=== PATIENT | female | born 1970 | race Caucasian/White ===

== ENCOUNTER → 2016-07-17 | Outpatient (REF) | payer MEDICAID, OTHER ==
[2016-07-17 19:50] LABS: COMPLEMENT C4 17.2 MG/DL (10-40)
[2016-07-17 20:45] LABS: BASO % 0.8 % (0.0-1.0); EOS # 0.1 K/mm3 (0.0-0.50); EOS % 2.3 % (0.0-3.0); LARGE UNSTAINED CELL # 0.1 K/mm3 (0.0-0.4); LARGE UNSTAINED CELL % 2.1 % (0.0-4.0); LYMPH # 1.2 K/mm3 (1.5-4.5); LYMPH % 25.6 % (24.0-44.0); MEAN CORPUSCULAR HEMOGLOBIN 30.6 pg (27.0-33.0); MEAN CORPUSCULAR HGB CONC 33.1 g/dl (32.0-36.5); MEAN CORPUSCULAR VOLUME 92.3 fl (80.0-96.0); MONO # 0.4 K/mm3 (0.0-0.8); MONO % 8.5 % (0.0-5.0); NEUTROPHILS # 2.8 K/mm3 (1.8-7.7); NEUTROPHILS % 60.7 % (36.0-66.0); PLATELET COUNT, AUTOMATED 329 k/mm3 (150-450); RED CELL DISTRIBUTION WIDTH 12.9 % (11.5-14.5); WHITE BLOOD COUNT 4.5 K/mm3 (4.0-10.0)
[2016-07-17 21:24] LABS: MICROSCOPIC INDICATED? MAN YES (NO)
[2016-07-17 21:25] LABS: BACTERIA, URINE SMALL AMOUNT; SQUAMOUS EPITHELIAL CELL URINE MOD AMOUNT /hpf (SMALL AMT)
[2016-07-17 21:26] LABS: HYALINE CAST, URINE NONE SEEN /lpf (0-1); MICROSCOPIC EXAM PERFORMED
== END ==
LOC: M SFHCADAM 19:06
PROVIDERS: ATTEND Family Medicine
DX: M25.542 Pain in joints of left hand (principal)

== ENCOUNTER → 2017-05-29 | Outpatient (CLI) | payer MEDICAID ==
--- NOTE | 2017-05-29 15:48 | REPMRS ---
Patient History The patient states she had a clinical breast exam in 05/2017. Family history of breast cancer in maternal aunt at age 50 or over. Taking hormonal contraceptives for 24 years. Digital Woman Screen Mammo: May 29, 2017 - Exam #: [id number] Bilateral CC and MLO view(s) were taken. Technologist: Ratna Carlos, Technologist Prior study comparison: January 18, 2015, digital woman screen mammo performed at [facility] to [facility]. January 06, 2014, digital woman screen mammo performed at [facility] to [facility]. FINDINGS: There are scattered fibroglandular densities. There has been no change in the appearance of the mammogram from the prior studies. There is a mild amount of residual fibroglandular tissue which is fairly symmetric. There is no interval development of dominant mass, architectural distortion, or clustered microcalcification suggestive of malignancy. ASSESSMENT: BI-RADS/ACR category 1 mammogram. Negative. Recommendation Routine screening mammogram in 1 year (for women over age 40). This mammogram was interpreted with the aid of an FDA-approved computer-aided dectection system. Electronically Signed By: Sam Christianson MD 05/29/17 [id number]
== END ==
LOC: M WHC 13:34
PROVIDERS: ATTEND Nurse Practitioner Family
DX: Z12.31 Encounter for screening mammogram for malignant neoplasm of breast (principal); Z92.0 Personal history of contraception

== ENCOUNTER → 2017-06-16 | Outpatient (CLI) | payer OTHER ==
--- NOTE | 2017-06-16 10:45 | REP ---
Chest two views HISTORY: Bronchitis Comparison: None Minimal peribronchial cuffing is present. The heart is normal in size. The pulmonary vasculature is normal in appearance. The bony structure is intact. IMPRESSION: Findings consistent with bronchitis. Signed by Carlo Alexander MD 06/16/2017 10:37 A
[2017-06-16 17:13] LABS: BASO # 0.1 10^3/uL (0.0-0.2); BASO % 0.8 % (0.0-1.0); EOS # 0.2 10^3/uL (0.0-0.50); EOS % 3.5 % (0.0-3.0); IMMATURE GRANULOCYTE % 0.3 % (0-0); LYMPH # 1.4 10^3/uL (1.5-4.5); LYMPH % 21.9 % (24.0-44.0); MEAN CORPUSCULAR HEMOGLOBIN 28.1 pg (27.0-33.0); MEAN CORPUSCULAR HGB CONC 31.5 g/dl (32.0-36.5); MEAN CORPUSCULAR VOLUME 89.1 fl (80.0-96.0); MONO # 0.9 10^3/uL (0.0-0.8); MONO % 13.6 % (0.0-5.0); NEUTROPHILS # 3.8 10^3/uL (1.8-7.7); NEUTROPHILS % 59.9 % (36.0-66.0); PLATELET COUNT, AUTOMATED 348 10^3/uL (150-450); RED CELL DISTRIBUTION WIDTH 14.2 % (11.5-14.5); WHITE BLOOD COUNT 6.3 10^3/uL (4.0-10.0)
== END ==
LOC: M ADAMS 10:09
PROVIDERS: ATTEND Physician Assistant Medical
DX: J20.9 Acute bronchitis, unspecified (principal)

== ENCOUNTER → 2017-07-03 | Outpatient (CLI) | payer OTHER ==
--- NOTE | 2017-07-04 14:35 | REP ---
Clinical: Pain with recent trauma/fall. Technique: AP, lateral, bilateral oblique and sunrise views right knee. Findings: The osseous structures and joint spaces are intact and normal for age. There is no evidence for acute fracture or dislocation. No joint effusion is appreciated. No subcutaneous emphysema or radiodense foreign body. Impression: No acute fracture or dislocation. Signed by Shahid Plummer MD 07/04/2017 02:25 A
== END ==
LOC: M ADAMS 11:26
PROVIDERS: ATTEND Physician Assistant Medical
DX: M25.561 Pain in right knee (principal)

== ENCOUNTER 2017-10-15 20:13 | Emergency (ER) | payer OTHER ==
[2017-10-15] MEDS: IBUPROFEN 800 MG TAB PO (23:15)
== END 2017-10-15 23:53 | disposition home or self-care (01) ==
LOC: M ED 20:13
DX: S60.212A Contusion of left wrist, initial encounter (principal); W01.0XXA Fall on same level from slipping, tripping and stumbling without subsequent striking against object, initial encounter; Y92.9 Unspecified place or not applicable; Y93.9 Activity, unspecified; Y99.0 Civilian activity done for income or pay; Z91.030 Bee allergy status
CPT/HCPCS: 73110

== ENCOUNTER → 2017-11-14 | Outpatient (CLI) | payer OTHER, MEDICAID | LOC: M ADAMS 10:36 | DX: M79.642 Pain in left hand (principal) | CPT/HCPCS: 73100 ==

== ENCOUNTER → 2018-08-01 | Outpatient (REF) | payer OTHER ==
[~2018-08-01] MED LIST: IBUP-1022 PO
[2018-08-03 15:16] LABS: HPV HYBRID CAPTURE II Negative (Negative)
== END ==
LOC: M SFHCWAGY 10:15
PROVIDERS: ATTEND Nurse Practitioner Family
DX: Z12.4 Encounter for screening for malignant neoplasm of cervix (principal)

== ENCOUNTER → 2019-08-04 | Outpatient (CLI) | payer OTHER ==
--- NOTE | 2019-08-04 16:31 | REPMRS ---
Patient History The patient states she had a clinical breast exam in 2019. Family history of breast cancer at age 50 or over in maternal aunt. Taking hormonal contraceptives for 24 years. Digital Woman Screen Mammo: August 04, 2019 - Exam #: [id number] Bilateral CC and MLO view(s) were taken. Technologist: Chasity Cortez, Technologist Prior study comparison: May 29, 2017, digital woman screen mammo performed at [facility]. January 18, 2015, digital woman screen mammo performed at [facility]. January 06, 2014, digital woman screen mammo performed at [facility]. FINDINGS: There are scattered fibroglandular densities. There has been no change in the appearance of the mammogram from the prior studies. There is a mild amount of scattered fibroglandular density which is fairly symmetric. There is no interval development of dominant mass, architectural distortion, or grouped microcalcification suggestive of malignancy. 3-D tomosynthesis shows no additional findings. Assessment: BI-RADS/ACR category 1 mammogram. Negative Mammogram. Recommendation Routine screening mammogram of both breasts in 1 year (for women over age 40). This patient's Lifetime Breast Cancer Risk is estimated at 10.3 %. This mammogram was interpreted with the aid of an FDA-approved computer-aided dectection system. Electronically Signed By: Prabhakar Eastman MD 08/04/19 [id number]
== END ==
LOC: M WHC 13:06
PROVIDERS: ATTEND Nurse Practitioner Family
DX: Z12.31 Encounter for screening mammogram for malignant neoplasm of breast (principal); Z79.3 Long term (current) use of hormonal contraceptives

== ENCOUNTER → 2020-08-27 | Outpatient (REF) | payer OTHER | LOC: M SFHCWAGY 13:47 | PROVIDERS: ATTEND Nurse Practitioner Family | DX: Z12.4 Encounter for screening for malignant neoplasm of cervix (principal); Z01.419 Encounter for gynecological examination (general) (routine) without abnormal findings ==

== ENCOUNTER → 2020-09-20 | Outpatient (REF) | payer OTHER | LOC: M LAB REF 14:45 | PROVIDERS: ATTEND Nurse Practitioner Women's Health | DX: R87.613 High grade squamous intraepithelial lesion on cytologic smear of cervix (HGSIL) (principal); B97.7 Papillomavirus as the cause of diseases classified elsewhere ==

== ENCOUNTER → 2020-10-21 | Outpatient (REF) | payer OTHER | LOC: M PLALAB 09:22 | PROVIDERS: ATTEND Obstetrics & Gynecology | DX: D06.9 Carcinoma in situ of cervix, unspecified (principal) ==

== ENCOUNTER → 2020-11-03 | Outpatient (REF) | payer OTHER ==
[2020-11-03 13:11] LABS: BASO % 0.9 % (0.0-1.0); EOS # 0.1 10^3/uL (0.0-0.5); EOS % 2.3 % (0.0-3.0); HEMATOCRIT 41.9 % (36.0-47.0); HEMOGLOBIN 13.3 g/dl (12.0-15.5); LYMPH % 44.6 % (24.0-44.0); MEAN CORPUSCULAR HEMOGLOBIN 29.6 pg (27.0-33.0); MEAN CORPUSCULAR HGB CONC 31.7 g/dl (32.0-36.5); MEAN CORPUSCULAR VOLUME 93.1 fl (80.0-96.0); MONO # 0.8 10^3/uL (0.0-0.8); MONO % 17.2 % (2.0-8.0); NEUTROPHILS # 1.5 10^3/uL (1.5-8.5); NEUTROPHILS % 34.8 % (36.0-66.0); PLATELET COUNT, AUTOMATED 388 10^3/uL (150-450); WHITE BLOOD COUNT 4.4 10^3/uL (4.0-10.0)
[2020-11-03 13:55] LABS: ALBUMIN 3.4 GM/DL (3.2-5.2); ALT/SGPT 15 U/L (12-78); BILIRUBIN,TOTAL 0.3 MG/DL (0.2-1.0); BLOOD UREA NITROGEN 13 MG/DL (7-18); CALCIUM LEVEL 8.8 MG/DL (8.5-10.1); CARBON DIOXIDE LEVEL 26 MEQ/L (21-32); CHLORIDE LEVEL 108 MEQ/L (98-107); CHOLESTEROL LEVEL 201 MG/DL (<200); CHOLESTEROL RISK RATIO 4.568 (<5); CREATININE FOR GFR 0.84 MG/DL (0.55-1.30); FREE T4 0.89 NG/DL (0.76-1.46); GLOMERULAR FILTRATION RATE > 60.0 (>51); GLUCOSE, FASTING 76 MG/DL (70-100); HDL CHOLESTEROL 44 MG/DL (>40); LDL CHOLESTEROL 139 MG/DL (<100); NON-HDL-C 157 MG/DL; POTASSIUM SERUM 4.9 MEQ/L (3.5-5.1); SODIUM LEVEL 140 MEQ/L (136-145); TOTAL PROTEIN 7.4 GM/DL (6.4-8.2); TRIGLYCERIDES LEVEL 91 MG/DL (<150)
== END ==
LOC: M SFHCADAM 08:06
PROVIDERS: ATTEND Family Medicine
DX: Z00.00 Encounter for general adult medical examination without abnormal findings (principal)

== ENCOUNTER → 2021-03-29 | Outpatient (CLI) | payer OTHER ==
--- NOTE | 2021-03-29 09:27 | REP ---
INDICATION: PAIN INRIGHT KNEE COMPARISON: None. TECHNIQUE: AP, lateral, bilateral oblique and sunrise views. FINDINGS: Osseous structures, joint spaces, and surrounding soft tissues are relatively age-appropriate. There is minimal increased sclerosis along the tibial plateau and posterior patellar margin. No significant cortical irregularity or osteophytosis. No chondrocalcinosis. No evidence for fracture or dislocation. Lateral view cannot exclude small suprapatellar effusion. IMPRESSION: Relatively age-related changes as described above. <Electronically signed by Shahid Plummer > 03/29/21 0927
== END ==
LOC: M ADAMS 09:01
PROVIDERS: ATTEND Physician Assistant
DX: M25.561 Pain in right knee (principal)

== ENCOUNTER → 2021-08-31 | Outpatient (REF) | payer OTHER | LOC: M SFHCADAM 12:25 | PROVIDERS: ATTEND Family Medicine | DX: Z12.4 Encounter for screening for malignant neoplasm of cervix (principal); R87.612 Low grade squamous intraepithelial lesion on cytologic smear of cervix (LGSIL) ==

== ENCOUNTER → 2021-11-23 | Outpatient (REF) | payer OTHER | LOC: M SFHCWAGY 17:25 | PROVIDERS: ATTEND Obstetrics & Gynecology | DX: R87.612 Low grade squamous intraepithelial lesion on cytologic smear of cervix (LGSIL) (principal) ==

== ENCOUNTER → 2022-11-03 | Outpatient (CLI) | payer OTHER | LOC: M WHC 13:35 | PROVIDERS: ATTEND Obstetrics & Gynecology | DX: Z12.31 Encounter for screening mammogram for malignant neoplasm of breast (principal) ==

== ENCOUNTER → 2022-11-03 | Outpatient (REF) | payer OTHER | LOC: M SFHCWAGY 17:18 | PROVIDERS: ATTEND Obstetrics & Gynecology | DX: Z12.4 Encounter for screening for malignant neoplasm of cervix (principal) ==

== ENCOUNTER → 2023-11-14 | Outpatient (REF) | payer OTHER | LOC: M SFHCWAGY 17:48 | PROVIDERS: ATTEND Obstetrics & Gynecology | DX: Z12.4 Encounter for screening for malignant neoplasm of cervix (principal); N95.2 Postmenopausal atrophic vaginitis ==

== ENCOUNTER → 2024-05-20 | Outpatient (REF) | payer OTHER ==
[2024-05-20 16:43] LABS: APPEARANCE, URINE CLEAR (CLEAR); BACTERIA, URINE AUTO NEGATIVE (NEGATIVE); BILIRUBIN, URINE AUTO NEGATIVE (NEGATIVE); BLOOD, URINE BLOOD NEGATIVE (NEGATIVE); COLOR, URINE STRAW (YELLOW); GLUCOSE, URINE (UA) AUTO NEGATIVE (NEGATIVE); KETONE, URINE AUTO NEGATIVE (NEGATIVE); LEUKOCYTE ESTERASE, URINE AUTO NEGATIVE (NEGATIVE); MUCUS, URINE SMALL (NEGATIVE); NITRITE, URINE AUTO NEGATIVE (NEGATIVE); PROTEIN, URINE AUTO NEGATIVE (NEGATIVE); RBC, URINE AUTO 0 /HPF (0-3); SPECIFIC GRAVITY URINE AUTO 1.008 (1.002-1.035); SQUAMOUS EPITHELIAL CELL UR AU 0 /HPF (0-6); UROBILINOGEN, URINE AUTO 0.2 mg/dL (0.0-2.0); WBC, URINE AUTO 0 /HPF (0-3)
[2024-05-20 16:46] LABS: BASO % 0.6 % (0.0-1.0); EOS # 0.1 10^3/uL (0.0-0.5); HEMATOCRIT 43.6 % (36.0-47.0); HEMOGLOBIN 14.5 g/dl (12.0-15.5); LYMPH # 1.8 10^3/uL (1.5-5.0); LYMPH % 36.6 % (24.0-44.0); MEAN CORPUSCULAR HEMOGLOBIN 30.3 pg (27.0-33.0); MEAN CORPUSCULAR HGB CONC 33.3 g/dl (32.0-36.5); MEAN CORPUSCULAR VOLUME 91.2 fl (80.0-96.0); MONO # 0.8 10^3/uL (0.0-0.8); NEUTROPHILS # 2.2 10^3/uL (1.5-8.5); NEUTROPHILS % 45.6 % (36.0-66.0); PLATELET COUNT, AUTOMATED 295 10^3/uL (150-450); RED BLOOD COUNT 4.78 10^6/uL (4.00-5.40); WHITE BLOOD COUNT 4.9 10^3/uL (4.0-10.0)
[2024-05-20 16:50] LABS: ERYTHROCYTE SEDIMENTATION RATE 13 mm/hr (0-30)
[2024-05-20 17:08] LABS: C REACTIVE PROTEIN QUANTITATIV < 0.40 MG/DL (<1.0)
[2024-05-20 17:09] LABS: CREATININE,RANDOM URINE 43.6 MG/DL
[2024-05-20 17:11] LABS: COMPLEMENT C3 140.9 MG/DL (90.0-170.0); COMPLEMENT C4 21.3 MG/DL (12-36)
[2024-05-20 17:17] LABS: TOTAL PROTEIN,RANDOM URINE < 6.0 MG/DL (0.0-14.0)
[2024-05-25 21:45] LABS: COMPLEMENT TOTAL (CH50) 67 U/mL (31-60)
[2024-05-27 00:43] LABS: PTT-LA 32 sec (<=40); dRVVT 34 sec (<=45)
== END ==
LOC: M SFHCRHEU 14:36
PROVIDERS: ATTEND Internal Medicine
DX: R76.8 Other specified abnormal immunological findings in serum (principal); M25.50 Pain in unspecified joint

== ENCOUNTER → 2024-05-22 | Outpatient (CLI) | payer OTHER | LOC: M ADAMS 10:32 | PROVIDERS: ATTEND Internal Medicine | DX: M25.531 Pain in right wrist (principal); M25.532 Pain in left wrist ==

== ENCOUNTER → 2024-08-22 | Outpatient (REF) | payer OTHER | LOC: M SFHCRHEU 12:10 | PROVIDERS: ATTEND Internal Medicine | DX: R53.83 Other fatigue (principal) ==

== ENCOUNTER → 2025-06-03 | Outpatient (CLI) | payer OTHER ==
[~2025-06-03] MED LIST changes: -IBUP-1022 PO; +IBUP600T42 PO
== END ==
LOC: M WHC 11:42
PROVIDERS: ATTEND Obstetrics & Gynecology
DX: Z12.31 Encounter for screening mammogram for malignant neoplasm of breast (principal); R92.313 Mammographic fatty tissue density, bilateral breasts

== ENCOUNTER → 2025-06-03 | Outpatient (REF) | payer OTHER ==
[2025-06-05 16:20] LABS: HPV APTIMA Not Detected (Not Detected)
== END ==
LOC: M SFHCWAGY 14:54
PROVIDERS: ATTEND Obstetrics & Gynecology
DX: Z12.4 Encounter for screening for malignant neoplasm of cervix (principal); N95.2 Postmenopausal atrophic vaginitis